=== PATIENT | male | born 1930 | race Caucasian/White ===

== ENCOUNTER 2016-11-27 20:53 | Observation (INO) | payer OTHER, BC ==
--- NOTE | 2016-11-27 21:40 | ERPHSYRPT ---
- History of Present Illness Time Seen by Provider: 11/27/16 21:29 Source: patient Exam Limitations: no limitations Patient Subjective Stated Complaint: pt states hes been coughing for about a week. c/o muscle pain in his abd with cough. Triage Nursing Assessment: pt alert and oriented, answers questins approp. respirations with mild sob with exertion. no sob while resting in bed. pt ambulatory with steady gait noted. lungs cta. Physician History: 86-year-old white male with history of CVA, TIA, hyperlipidemia, anxiety, osteoarthritis Patient arrives with complaints that he was in [employer] at about 7:00 this evening began coughing and the apparently became unresponsive for several minutes he states suddenly he was surrounded by the hospitality internship and members of the [employer] he denies any pain anywhere he has not had any problems moving or speaking. He does state that he was coughing for approximately one week he has not had any fevers no nausea no vomiting he does have pain in the abdomen with his cough. Past medical history includes CVA, TIA, hyperlipidemia, anxiety, osteoarthritis Timing/Duration: other (coughing for a week possible syncope at 7:00 PMtoday) Modifying Factors: Improves With: nothing Associated Symptoms: abdominal pain (pain with coughing and the abdomen), shortness of breath, cough, syncope, No nausea, No vomiting, No heartburn, No diaphoresis, No chills, No chest pain, No fever, No headaches, No loss of appetite, No rash, No seizure, No weakness Allergies/Adverse Reactions: No Known Drug Allergies Allergy (Unverified 11/27/16 21:38) Home Medications: Unobtainable [Unobtainable] 11/27/16 [History] Hx Tetanus, Diphtheria Vaccination/Date Given: Yes Hx Influenza Vaccination/Date Given: No Hx Pneumococcal Vaccination/Date Given: Yes Immunizations Up to Date: Yes - Review of Systems Constitutional: No Fever, No Chills Eyes: No Symptoms Ears, Nose, & Throat: No Symptoms Respiratory: Cough, No Dyspnea Cardiac: No Chest Pain, No Edema, No Syncope Abdominal/Gastrointestinal: Abdominal Pain (pain with coughing upper abdomen), No Nausea, No Vomiting, No Diarrhea, No Constipation, No Hematemesis, No Hematochezia, No Melena, No Dysphagia, No Appetite Changes Genitourinary Symptoms: No Dysuria Musculoskeletal: No Back Pain, No Neck Pain Skin: No Rash Neurological: No Dizziness, No Focal Weakness, No Sensory Changes Psychological: No Symptoms Endocrine: No Symptoms All Other Systems: Reviewed and Negative - Past Medical History Neurological History: Stroke, TIA Cardiac History: High Cholesterol, Hypertension Respiratory History: No Pertinent History Endocrine Medical History: No Pertinent History Musculoskeletal History: Arthritis, Osteoarthritis Other Medical History: very healthy and works around the one story home he lives in with . staying on first floor. - Past Surgical History Past Surgical History: No - Social History Smoking Status: Never smoker Exposure to second hand smoke: No Drug Use: none Patient Lives Alone: No - Nursing Vital Signs Nursing Vital Signs: Initial Vital Signs Temperature 97.9 F Temperature Source Oral Pulse Rate 66 Respiratory Rate 16 Blood Pressure [] 159/77 Pain Intensity 0 - Physical Exam General Appearance: no apparent distress, alert Eye Exam: PERRL/EOMI, eyes nml inspection Ears, Nose, Throat Exam: normal ENT inspection, TMs normal, pharynx normal, moist mucous membranes Neck Exam: normal inspection, non-tender, supple, full range of motion Respiratory Exam: normal breath sounds, lungs clear, No respiratory distress Cardiovascular Exam: regular rate/rhythm, normal heart sounds, normal peripheral pulses Gastrointestinal/Abdomen Exam: soft, normal bowel sounds, No tenderness, No mass Back Exam: normal inspection, normal range of motion, No CVA tenderness, No vertebral tenderness Extremity Exam: normal inspection, normal range of motion, pelvis stable Neurologic Exam: alert, oriented x 3, cooperative, normal mood/affect, nml cerebellar function, nml station & gait, sensation nml, No motor deficits Skin Exam: normal color, warm, dry, No rash Lymphatic Exam: No adenopathy SpO2 Interpretation: normal (98%) SpO2: 98 Oxygen Delivery: Room Air - Course Nursing assessment & vital signs reviewed: Yes EKG Interpreted by Me: RATE (67 bpm), Sinus Rhythm, NORMAL AXIS, Other (EKG, sinus rhythm, 67 bpm, normal axis, T-wave inversion in leads 1 and l no old ekg for comparison) - CT Exams Head CT Interpretation: Tele-radiologist Report (head CT: Excessive senescent changes no acute abnormality or significant interval change is seen) Ordered Tests: Active Orders 24 hr Category Date Time Status Accucheck STAT Care 11/27/16 21:35 Active EKG-ER Only STAT Care 11/27/16 21:35 Active IV Insertion STAT Care 11/27/16 21:35 Active CHEST 1 VIEW (PORTABLE) Stat Exams 11/27/16 21:35 Taken HEAD WITHOUT CONTRAST [CT] Stat Exams 11/27/16 21:36 Taken AMYLASE Stat Lab 11/27/16 21:51 Completed CBC W DIFF Stat Lab 11/27/16 21:51 Completed CMP Stat Lab 11/27/16 21:51 Completed LIPASE Stat Lab 11/27/16 21:51 Completed Manual Differential NC Stat Lab 11/27/16 21:51 Completed TROPONIN Stat Lab 11/27/16 21:51 Completed Lab/Rad Data: Laboratory Result Diagrams 11/27/16 21:51 11/27/16 21:51 Laboratory Results 11/27/16 11/27/16 Range/Units 21:51 21:51 WBC 7.3 (4.0-10.5) K/mm3 RBC 4.76 (4.1-5.6) M/mm3 Hgb 14.6 (12.5-18.0) gm/dl Hct 44.0 (42-50) % MCV 92.4 (78-100) fl MCH 30.7 (26-32) pg MCHC 33.2 (32-36) g/dl RDW 13.8 (11.5-14.0) % Plt Count 235 (150-450) K/mm3 MPV 9.6 H (6-9.5) fl Sodium 134 L (136-145) mEq/L Potassium 4.1 (3.5-5.1) mEq/L Chloride 102 (98-107) mEq/L Carbon Dioxide 21.9 (21-32) mEq/L Anion Gap 14.6 (5-15) MEQ/L BUN 30 H (9-20) mg/dL Creatinine 1.66 H (0.55-1.30) mg/dl Estimated GFR 42 ML/MIN Glucose 151 H (70-110) MG/DL Calcium 9.3 (8.5-10.1) mg/dL Total Bilirubin 0.4 (0.2-1.0) mg/dL AST 28 (15-37) U/L ALT 17 (12-78) U/L Alkaline Phosphatase 61 (46-116) U/L Troponin I < 0.017 (0.000-0.056) ng/ml Serum Total Protein 7.5 (6.4-8.2) gm/dL Albumin 3.9 (3.4-5.0) g/dL Amylase 53 (25-115) U/L Lipase 262 (73-393) U/L - Progress Progress: improved Progress Note: 11/27/16 23:13 This is an 86-year-old white male with history of CVA, TIA, hyperlipidemia, arthritis, osteoarthritis He states he has been coughing for a week. He states he hurts on the anterior abdomen when he coughs. He states that he was sitting in [employer] coughed and had a syncopal episode which only lasted for a few seconds but did state that he woke up with the hospitality internship and surrounding rastafarian around him. Patient does not appear to have acute EKG changes laboratory studies are essentially normal with the exception of a BUN of 30 and a creatinine 1.66 troponin is within normal limits chest x-ray no acute changes are noted. Vitals are stable. Patient is reexamined he has no wheezes on his lungs at this time and lungs sound clear. I have discussed case with Dr. Lucas Machado who is electric distribution engineer for Dr. Norton, the patient's family physician. Will go ahead and place patient on normal saline 100 mL/h, place him on telemetry and obtain CBC CMP a troponin in the morning. - Departure Time of Disposition: 23:14 Departure Disposition: Observation Clinical Impression: Cough Syncope Qualifiers: Syncope type: unspecified Qualified Code(s): R55 - Syncope and collapse Condition: Fair Critical Care Time: No
[2016-11-27 21:53] LABS: Mean Cell Volume 92.4 fl (78-100); Mean Corpuscular Hemoglobin 30.7 pg (26-32); Mean Platelet Volume 9.6 fl (6-9.5); Platelet Count 235 K/mm3 (150-450); Red Blood Count 4.76 M/mm3 (4.1-5.6); Red Cell Distribution Width 13.8 % (11.5-14.0); White Blood Count 7.3 K/mm3 (4.0-10.5)
[2016-11-27 22:26] LABS: ALBUMIN 3.9 g/dL (3.4-5.0); ALKALINE PHOSPHATASE 61 U/L (46-116); ANION GAP 14.6 MEQ/L (5-15); BILIRUBIN,TOTAL 0.4 mg/dL (0.2-1.0); BLOOD UREA NITROGEN 30 mg/dL (9-20); CHLORIDE 102 mEq/L (98-107); Carbon Dioxide 21.9 mEq/L (21-32); Glucose 151 MG/DL (70-110); LIPASE 262 U/L (73-393); Potassium 4.1 mEq/L (3.5-5.1); SGOT/AST 28 U/L (15-37); SGPT/ALT 17 U/L (12-78); SODIUM 134 mEq/L (136-145); TROPONIN < 0.017 ng/ml (0.000-0.056); Total Protein 7.5 gm/dL (6.4-8.2)
[2016-11-27 23:22] LABS: BAND 4 % (0.0-2.0); Eosinophil 2 % (0.00-3.0); Platelet Estimate NORMAL (NORMAL); Total Cells Counted 100
[2016-11-28 05:41] LABS: BASOPHIL % 0.3 % (0.0-0.4); Eosinophil % 7.6 % (0.00-5.0); Granulocytes % 52.6 % (36.0-66.0); Lymphocytes % 24.3 % (24.0-44.0); Mean Cell Volume 92.5 fl (78-100); Mean Corpuscular Hemoglobin 30.8 pg (26-32); Mean Platelet Volume 9.7 fl (6-9.5); Monocytes % 15.2 % (0.0-12.0); Platelet Count 232 K/mm3 (150-450); Red Blood Count 4.28 M/mm3 (4.1-5.6); Red Cell Distribution Width 13.6 % (11.5-14.0); White Blood Count 6.5 K/mm3 (4.0-10.5)
[2016-11-28 06:25] LABS: ALBUMIN 3.3 g/dL (3.4-5.0); ALKALINE PHOSPHATASE 51 U/L (46-116); ANION GAP 9.4 MEQ/L (5-15); BILIRUBIN,TOTAL 0.4 mg/dL (0.2-1.0); BLOOD UREA NITROGEN 29 mg/dL (9-20); CHLORIDE 107 mEq/L (98-107); Carbon Dioxide 25.5 mEq/L (21-32); Glucose 153 MG/DL (70-110); Potassium 3.8 mEq/L (3.5-5.1); SGOT/AST 22 U/L (15-37); SGPT/ALT 24 U/L (12-78); SODIUM 138 mEq/L (136-145); Total Protein 6.7 gm/dL (6.4-8.2)
[2016-11-28 06:29] LABS: TROPONIN < 0.017 ng/ml (0.000-0.056)
--- NOTE | 2016-11-28 08:21 | HP ---
CHIEF COMPLAINT: Syncopal episode. HISTORY OF PRESENT ILLNESS: The patient is an 86 year-old white male patient who apparently was at [employer] when he began having issues where he just had his eyes glaze over and the next thing he knew was that the preacher and parishioners were all around him trying to get him to wake up. The patient's stated that he had no significant problems prior to this. She does report however that he has had a cough over the past week but no fever. The patient has drainage for which he uses nasal sprays on a regular basis for several years. PAST MEDICAL/SURGICAL HISTORY: Significant for previous stroke and CVA and arthritis of degenerative type. HOME MEDICATIONS: Currently unknown although we do know that he takes blood pressure medicine. We are not sure which type presently. ALLERGIES: NKDA. PHYSICAL EXAMINATION: The patient is alert, awake, oriented x3 and able to tell his story otherwise. HEENT: Normocephalic, atraumatic. Pupils equal round reactive to light. Extraocular movements intact. Oropharynx is pink and moist. NECK: Supple without lymphadenopathy, thyromegaly or JVD. CHEST: Clear to auscultation. HEART: Currently regular rate and rhythm with occasional PVC's noted on button tufter. ABDOMEN: Soft, nontender, nondistended without hepatosplenomegaly or masses. EXTREMITIES: Without clubbing, cyanosis or edema. NEUROLOGIC: The patient is again alert and oriented x3. LAB DATA AND TESTS: Show his white blood cell count 7,300, hemoglobin 14.6, PLT count normal at 235,000. BUN 30, creatinine 1.66. Glucose 151. Liver enzymes were normal. Troponins less than 0.017. Amylase and lipase were normal but did have 63 polys, 4 granulocytes, 18 lymphocytes on the differential. The patient's chest x-ray appeared to be no active disease. CT scan had shown significant stenotic changes but nothing acute. His EKG rhythm strip does show PVC's but appear to be of unifocal type. The 12-lead otherwise shows no significant acute changes. ASSESSMENT: A patient with syncopal event likely due to arrhythmia. The patient has been admitted to the hospital and placed on telemetry and is being monitored since his admission with no significant arrhythmias noted otherwise at the present time. We will check the patient's carotid Doppler's and echocardiogram. We will double check his home medicine list from the pharmacy and place him on metoprolol at 25 mg twice a day, obtain cardiology consultation as an outpatient for further evaluation and management of likely arrhythmia event leading to syncope.
--- NOTE | 2016-11-28 08:42 | XRAY ---
Indication: Syncope. Multiple contiguous axial images obtained through the head without contrast. Comparison: December 03, 2014. Stable age-appropriate global atrophy, moderate periventricular degenerative micro-ischemia bilaterally, and tiny remote lacunar infarct in the external capsule bilaterally. No acute intracranial hemorrhage, abnormal extra-axial fluid collection, or mass effect. Fourth ventricle is midline. Bony calvarium intact. Visualized paranasal sinuses and mastoid air cells are pneumatized and clear. Impression: Stable aging brain including atrophy and degenerative micro-ischemia. Stable bilateral external capsule lacunar infarcts. No new or acute intracranial abnormalities. Comment: Preliminary interpretation was made by [facility]. No discrepancy. CT DI 64.42
--- NOTE | 2016-11-28 08:44 | XRAY ---
Indication: Fever and cough. Comparison: None Portable apical lordotic chest is underinflated with right base subsegmental atelectasis/scarring. Remaining lungs clear. Heart is not enlarged. Bony thorax intact with mild osteopenia. Impression: Nonacute underinflated chest.
[2016-11-28 11:36] VITALS: BP 153/79; PULSE 63; O2SAT 93
--- NOTE | 2016-11-28 12:07 | XRAY ---
Indication: TIA. Two dimensional sonogram and color Doppler imaging of the carotid arteries of the neck performed. COMPARISON: March 16, 2016. Examination of the right carotid circulation demonstrates stable tiny eccentric calcified plaquing in the common carotid artery, bulb, and origin of the internal carotid artery. Minimal intimal thickening seen at the level of the bulb unchanged. Peak systolic velocity of the CCA is 66 cm/second. Peak systolic velocity of the ICA is 63 cm/second. ICA/CCA ratio is 0.9. Normal antegrade vertebral artery flow. Examination of the left carotid circulation demonstrates stable tortuous common carotid artery and mild calcified plaquing in the common carotid artery and at the level of the bulb again extending into the origin of the internal and external carotid arteries. Peak systolic velocity of the CCA is 83 cm/second. Peak systolic velocity of the ICA is 88 cm/second. ICA/CCA ratio is 1.1. Normal antegrade vertebral artery flow. IMPRESSION: Stable carotid ultrasound again demonstrating scattered arteriosclerotic disease, left carotid circulation greater than right. Velocity measurements and ratios again negative for hemodynamically significant flow-limiting stenosis.
[2016-11-28] MEDS ORDERED: Flonase NASAL NS PRN (14:18)
[2016-11-28] MEDS ORDERED: PLAVIX 75 MG Tablet PO SCH (14:30)
[2016-11-28] MEDS ORDERED: Toprol-Xl 25MG Tablets PO SCH (14:30)
[2016-11-28] MEDS ORDERED: ZOCOR 20MG PO SCH (14:30)
[2016-11-28] MEDS ORDERED: Lotensin 10 MG PO SCH (14:30)
[2016-11-28] MEDS ORDERED: NORVASC 5 MG PO SCH (14:30)
[2016-11-28] MEDS ORDERED: FISH OIL 1,000 MG CAPSULE PO SCH (14:30)
[2016-11-28] MEDS ORDERED: Maxzide-25MG Tablet PO SCH (14:30)
[2016-11-28] MEDS ORDERED: Voltaren GEL TP SCH (17:00)
[2016-11-29] MEDS ORDERED: NON-FORMULARY ITEM (Triamterene/Hydrochlorothiazid [Triamterene-Hctz 75-50 Mg Tab] 1 EACH) PO SCH (10:00)
[2016-11-29] MEDS ORDERED: NON-FORMULARY ITEM (Pravastatin Sodium [Pravastatin Sodium] 20 MG) PO SCH (10:00)
[2016-11-29] MEDS ORDERED: NON-FORMULARY ITEM (Omega-3 Fatty Acids [Fish Oil] 300 MG) PO SCH (10:00)
--- NOTE | 2016-11-30 07:32 | ECHO ---
. DATE OF PROCEDURE: 11/28/2016 CLINICAL INFORMATION: Syncope. The M-mode 2D, and Doppler echocardiogram including color flow Doppler shows normal contractility of the left ventricle with an ejection fraction calculated at 65%. There is mild tricuspid regurgitation with a normal right ventricular systolic pressure of 25 mm of Mercury. The aortic root is normal at 3.6 cm. The left atrium is borderline dilated with a dimension of 4.1 cm. The aortic valve opens well. The left ventricle is normal in size with a dimension of 5.5 cm. The septal wall thickness is normal at 1.0 cm. The left ventricular posterior wall thickness is normal at 1.1 cm. There is mild pulmonic regurgitation. There is mild tricuspid regurgitation. There is no apical thrombus noted. The mitral valve E to A inflow velocity ratio is decreased at 0.7 consistent with impaired left ventricular relaxation. There is no pericardial present. The right ventricle is grossly normal. There is no pericardial effusion. IMPRESSION: 1) NORMAL CONTRACTILITY OF THE LEFT VENTRICLE. 2) THERE IS EVIDENCE OF IMPAIRED LEFT VENTRICULAR RELAXATION. 3) BORDERLINE LEFT ATRIAL DILATATION. 4) MILD PULMONIC REGURGITATION. 5) MILD TRICUSPID REGURGITATION. 6) THERE IS NO PERICARDIAL EFFUSION.
== END 2016-11-28 15:55 | disposition home or self-care (01) ==
LOC: ED 20:53 → MED SURG 11-28 00:30
PROVIDERS: ADMIT Family Medicine; ATTEND Family Medicine
DX: R55 Syncope and collapse (principal); Z86.73 Personal history of transient ischemic attack (TIA), and cerebral infarction without residual deficits; M19.90 Unspecified osteoarthritis, unspecified site; Z79.899 Other long term (current) drug therapy
CPT/HCPCS: 36000; 36415; 70450; 71010; 80053; 82150; 82962; 83690; 84484; 85025; 93005; 93268; 93306; 93880; 99285; G0378; A9270-GY